=== PATIENT | male | born 1985 | race Caucasian/White ===

== ENCOUNTER 2020-03-15 11:52 | Emergency (ER) | payer SELFPAY ==
[~2020-03-15] VITALS: Ht 157.5 cm; Wt 63.5 kg
[2020-03-15 11:58] VITALS: BP_SYST 141
[2020-03-15] MEDS ORDERED: ALBUTEROL SULFATE 0.083% 2.5 MG/3 ML VIAL.NEB INH ONE ×2 (12:00→13:30)
[2020-03-15] MEDS ORDERED: methylPREDNISolone SOD SUCC/PF 62.5 MG/ML VIAL IVP ONE (12:00)
[2020-03-15] MEDS ORDERED: IPRATROPIUM BROM 0.5 MG/2.5 ML VIAL.NEB (ATROVENT) INH ONE ×2 (12:00→13:30)
--- NOTE | 2020-03-15 12:00 | NUR ---
Patient to ER bed 7 to gown for evaluation. Side rails up.
--- NOTE | 2020-03-15 12:08 | NUR ---
pt arrives from home w/ c/o increasing SOB since this am. Pt has hx of asthma and used rescure inhaler w/out any relief. Pt does not have any wheezes.
--- NOTE | 2020-03-15 12:10 | NUR ---
ER at bedside examining patient.
--- NOTE | 2020-03-15 12:18 | NUR ---
# 22 gauge angiocath placed to left hand. Use of asceptic technique. Opsite placed over site. Blood return noted. Blood for lab drawn from site. Flushed with 10 cc of normal saline. No evidence of infiltration noted. Patient tolerated well.
--- NOTE | 2020-03-15 12:20 | NUR ---
Pt currently getting a breathing tx at the bedside.
[2020-03-15 12:32] LABS: BASOPHILS % (AUTO) 0.3 % (0.0-2.0); EOSINOPHILS % (AUTO) 0.1 % (0.0-4.0); HEMATOCRIT 43.8 % (36-54); HEMOGLOBIN 14.5 g/dL (14.0-18.0); LYMPHOCYTES # (AUTO) 0.5 K/uL (1.0-5.5); LYMPHOCYTES % (AUTO) 6.9 % (20.5-51.5); MEAN CORPUSCULAR HEMOGLOBIN 27 pg (27-31); MEAN CORPUSCULAR HGB CONC 33 % (32-36); MEAN CORPUSCULAR VOLUME 81 fL (79.0-98.0); MONOCYTES # (AUTO) 0.2 K/uL (0.0-1.0); NEUTROPHILS # (AUTO) 6.6 K/uL (1.8-7.7); NEUTROPHILS % (AUTO) 89.7 % (40.0-70.0); PLATELET COUNT (AUTO) 196 K/uL (130-430); RED BLOOD CELL COUNT(AUTO) 5.41 MIL/uL (4.2-6.2); RED CELL DISTRIBUTION WIDTH 15.6 % (9.0-15.0); WHITE BLOOD COUNT (AUTO) 7.4 K/uL (4.8-10.8)
[2020-03-15 12:44] LABS: CALCIUM 8.3 mg/dL (8.4-11.0); CREATININE 0.89 mg/dL (0.55-1.30)
[2020-03-15 12:58] LABS: ALBUMIN 3.1 g/dL (3.4-4.8); TOTAL BILIRUBIN 0.7 mg/dL (0.0-1.0)
--- NOTE | 2020-03-15 13:00 | NUR ---
pt reports breathing better. Lung sounds are clearer.
[2020-03-15 13:20] VITALS: BP_SYST 141
--- NOTE | 2020-03-15 13:21 | NUR ---
Patient given written and verbal discharge instructions and verbalizes understanding. ER MD discussed with patient the results and treatment provided. Patient in stable condition. ID arm band removed. Rx of prednisone, zothromax, and albuterol given. Patient educated on pain management and to follow up with PMD. Pain Scale 0/10. Opportunity for questions provided and answered. Medication side effect fact sheet provided.
--- NOTE | 2020-03-15 13:31 | NUR ---
pt getting a second breathing tx at the bedside
== END 2020-03-15 13:25 | disposition home or self-care (01) ==
LOC: SED 11:52
DX: J45.901 Unspecified asthma with (acute) exacerbation (principal)
CPT/HCPCS: 36415; 80053; 85025; 94640; 96374; 99284; J2930; J7613